=== PATIENT | male | born 1935 | race Caucasian/White ===

== ENCOUNTER 2018-08-05 19:30 | Inpatient (IN) ==
[2018-08-05 20:35] LABS: URINE SOURCE CATH
[2018-08-05 20:37] LABS: BASO# 0.02 X1000 (0.0-0.2); BASO% 0.2 % (0.0-0.8); EOS# 0.13 X1000 (0.0-0.7); EOS% 1.1 % (0.0-10.0); HEMATOCRIT 33.4 % (42.0-52.0); HEMOGLOBIN 10.7 g/dL (14.0-18.0); IMM GRAN# 0.03 X1000 (0.0-0.04); IMM GRAN% 0.2 % (0.0-0.5); LYMPH# 1.64 X1000 (1.2-3.4); LYMPH% 13.5 % (20.5-51.1); MCH 30.1 PG (27-31); MCV 94.1 FL (81-99); MONO# 0.75 X1000 (0.11-0.59); MONO% 6.2 % (1.7-9.3); MPV 9.6 FL (7.4-10.4); NEUT# 9.58 X1000 (1.4-6.5); NEUT% 78.8 % (42.2-75.2); PLT 398 X1000 (130-400); RBC 3.55 XMIL (4.7-6.1); RDW 12.9 % (11.5-14.5); WBC 12.15 X1000 (4.8-10.8)
[2018-08-05 20:38] LABS: BILIRUBIN URINE NEGATIVE (NEGATIVE); BLOOD URINE SMALL (NEGATIVE); COLOR YELLOW; GLUCOSE URINE NEGATIVE (NEGATIVE); KETONE URINE NEGATIVE (NEGATIVE); LEUKOCYTES URINE NEGATIVE (NEGATIVE); NITRITE URINE NEGATIVE (NEGATIVE); PH URINE 6.5; PROTEIN URINE NEGATIVE (NEGATIVE); SP GRAVITY URINE 1.012; TURBIDITY URINE CLEAR (CLEAR); UROBILINOGEN URINE NORMAL (NORMAL)
[2018-08-05 20:39] LABS: UR EPITHELIAL CELLS <10 /HPF (<10); URINE BACTERIA NEGATIVE /HPF; URINE WBC <10 /HPF (<10)
[2018-08-05 20:50] LABS: AGAP 9; ALBUMIN 3.3 g/dL (3.5-5.0); ALKALINE PHOSPHATASE 93 U/L (32-122); AMYLASE 61 U/L (20-200); BUN 16 mg/dL (8-22); CALCIUM 10.4 mg/dL (8.8-10.2); CHLORIDE 104 mmol/L (98-107); COSMO 281; CREATININE 1.1 mg/dL (0.7-1.2); ESTIMATED GFR > 60; GLUCOSE 114 mg/dL (70-104); GOT 15 U/L (10-34); GPT 12 U/L (10-44); LIPASE 30 U/L (13-60); POTASSIUM 4.6 mmol/L (3.5-5.1); SODIUM 140 mmol/L (136-145); TCO2 27 mmol/L (25-35); TOTAL BILIRUBIN 0.26 mg/dL (0.20-1.00); TOTAL PROTEIN 6.6 g/dL (6.3-8.3)
--- NOTE | 2018-08-05 21:52 | Diag Imaging Result Doc PS360 ---
EXAM: CT ABDOMEN/PELVIS W/O CONTRAST 08/05/2018 HISTORY: abd pain TECHNIQUE: This exam was performed using automated exposure control, adjustment of mA or kV according to patient size, and/or use of iterative reconstruction technique. COMMENT: The current examination is compared with the previous study of 11/05/2016. There are some fibrotic changes present in the lung bases which have not apparently changed since the previous study. There is extensive colonic diverticulosis. There is no evidence of cholelithiasis. There are numerous granulomata in the spleen. There is hyperdense material within the renal collecting systems bilaterally. No contrast was given by history. Some of this may be due to stones. There is no evidence of hydronephrosis. There is a large cyst in the lower pole of the right kidney measuring 4.7 cm in diameter. There is some fat stranding around the duodenum. There were previously multiple diverticula in the second and third portions of the duodenum. There is no evidence of free air. There is some apparent mucosal thickening in the second portion of the duodenum. There is no evidence of diverticulitis or free fluid. There has been previous prostatectomy. The urinary bladder is not particularly distended. There are postsurgical changes and spondylotic changes in the lumbar spine. There is a defect in the right eighth rib which may be due to previous surgery. IMPRESSION: Inflammatory changes around the second portion of the duodenum with thickening of the mucosa. The possibility of duodenal ulcer disease, duodenal diverticulitis, or even focal pancreatitis should be considered. Apparent staghorn calculi. Electronically signed by Stephane Dee 08/05/2018 9:49 PM
[2018-08-06] MEDS ORDERED: ZOFRAN IV PRN (00:03)
[2018-08-06] MEDS ORDERED: TYLENOL PO PRN (00:03)
[2018-08-06] MEDS: PROTONIX IV SCH ×2 (01:31→13:27)
[2018-08-06] MEDS: NS 1,000 ML IV SCH ×2 (01:31→10:36)
[2018-08-06] MEDS: ZOSYN 3.375 GM in NS 50 ML IV SCH ×4 (01:31→18:54)
[2018-08-06] MEDS: MORPHINE IV PRN ×2 (04:03→12:05)
[2018-08-06 06:48] LABS: BASO# 0.03 X1000 (0.0-0.2); BASO% 0.3 % (0.0-0.8); EOS# 0.18 X1000 (0.0-0.7); EOS% 1.8 % (0.0-10.0); HEMATOCRIT 32.6 % (42.0-52.0); HEMOGLOBIN 10.4 g/dL (14.0-18.0); IMM GRAN# 0.02 X1000 (0.0-0.04); IMM GRAN% 0.2 % (0.0-0.5); LYMPH# 2.21 X1000 (1.2-3.4); LYMPH% 22.1 % (20.5-51.1); MCH 30.2 PG (27-31); MCHC 31.9 g/dL (33-37); MCV 94.8 FL (81-99); MONO# 0.81 X1000 (0.11-0.59); MONO% 8.1 % (1.7-9.3); MPV 9.7 FL (7.4-10.4); NEUT# 6.76 X1000 (1.4-6.5); NEUT% 67.5 % (42.2-75.2); PLT 361 X1000 (130-400); RBC 3.44 XMIL (4.7-6.1); RDW 13.1 % (11.5-14.5); WBC 10.01 X1000 (4.8-10.8)
[2018-08-06 07:22] LABS: AGAP 10; BUN 14 mg/dL (8-22); CALCIUM 9.6 mg/dL (8.8-10.2); CHLORIDE 104 mmol/L (98-107); COSMO 276; CREATININE 1.1 mg/dL (0.7-1.2); ESTIMATED GFR > 60; GLUCOSE 94 mg/dL (70-104); POTASSIUM 4.3 mmol/L (3.5-5.1); SODIUM 138 mmol/L (136-145); TCO2 24 mmol/L (25-35)
--- NOTE | 2018-08-06 08:40 | HISTORY AND PHYSICAL ---
PRIMARY CARE PHYSICIAN: Dr. Judi Valentine CHIEF COMPLAINT: Right upper quadrant pain. HISTORY OF PRESENT ILLNESS: Mr. Becerril is an 83-year-old male who presented to the ER approximately 1930 on 08/05/2018. The patient was brought in by ambulance, and initially the call went out as chest pain, though it does appear, upon further evaluation in the ER, that the patient, when asked to point to his pain, was pointing to his right upper quadrant and epigastric area. He denied any upper chest pain. Though they did perform an EKG in the ER which showed a normal sinus rhythm at a rate of 90 with a QTC of 398. There does not appear to be any acute ST change noted. The patient's daughter who was at bedside states that the patient does have problems with constipation where he will have to take a laxative, and then unfortunately the laxative will have a few episodes of diarrhea. She says this is a common ongoing thing, though she did report that the patient had some constipation and had taken a laxative recently. The patient denies any nausea or vomiting. The patient and his daughter deny him having any known hematochezia or melena. He denies any dysuria or urinary frequency. He denies any pain, numbness, tingling or swelling in extremities. He also denies any headache or dizziness. He denies any known fever, body aches or chills. The patient does have a history of dementia. He is alert and oriented to person and place, though not time. He was able to recognize his daughter at bedside and was able to tell me her middle name. His 2 daughters do help care for him and his . Unfortunately his is in poor health as well, and they require 24-hour care. They do have sitters during the day, and his third daughter does stay with both of them at night. Though at this time, the patient does appear to be at his baseline according to the daughter. He did appear to be in good spirits and was joking with me during my examination. Due to the patient's report of right upper quadrant pain as well as he did have some leukocytosis with a white blood cell count of 12,150, they performed a CT of the abdomen and pelvis without contrast which did show inflammatory changes around the second portion of the duodenum with thickening of the mucosa. The possibility of duodenal ulcer disease, duodenal diverticulitis or even focal pancreatitis should be considered. There was also apparent staghorn calculi noted. The patient was admitted in 04/2016 and was diagnosed with a GI bleed. 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 On his colonoscopy performed during this admission, it was noted to have diverticulosis and a diverticular bleed. Though at this time, the patient does not report any hematemesis, hematochezia or melena. His hemoglobin and hematocrit are slightly low, though both appear stable at this time. The patient will be placed inpatient for admission. REVIEW OF SYSTEMS: A 14-point review of systems was conducted with the patient. All were negative except for pertinent positives mentioned in the above HPI. PAST MEDICAL HISTORY: 1. History of colitis, history of diverticulosis with a diverticular bleed. 2. Alzheimer's dementia. 3. Hypertension. 4. Hyperlipidemia. 5. GERD. 6. History of prostate cancer, status post prostatectomy. PAST SURGICAL HISTORY: 1. 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 2. Prostatectomy. SOCIAL HISTORY: The patient is , though he and his both do require 24-hour care. They do have sitters that stay when them during the day, and his other daughter stays with them during the night. He does live here in [place]. There is no known history of tobacco, alcohol or illicit drug use. FAMILY HISTORY: Notable for his mother having a known history of being obese, and his father was an alcoholic. ALLERGIES: The patient has allergy to Macrodantin and Maxaquin. HOME MEDICATIONS: 1. Amlodipine 5 mg p.o. nightly at bedtime. 2. Aspirin 81 mg p.o. daily. 3. Celexa 20 mg p.o. nightly at bedtime. 4. Cranberry fruit extract 250 mg p.o. daily. 5. Anton 7.5 one p.o. p.r.n. as directed for pain. 6. Multigen Plus caplet 1 p.o. daily. 7. Namzaric 14/10 mg capsule 1 p.o. nightly at bedtime. 8. Multivitamin with minerals tablet 1 p.o. daily. 9. Pravastatin 30 mg p.o. nightly at bedtime. DIAGNOSTIC DATA: White blood cell count is 12,150, hemoglobin 10.7, hematocrit 33.4, platelet count 398. Sodium 140, potassium 4.6, chloride 104, serum bicarb is 27, BUN is 16, creatinine 1.1 with GFR greater than 60, glucose 114, calcium 10.4. Liver function tests within normal limits. Troponin is less than 0.01. Amylase 61, lipase 30, plasma lactate is 1.2. Urinalysis was obtained via catheter and was positive for small amount of blood, though was negative for protein, glucose, ketones, nitrites, leukocytes or white blood cells. EKG showed normal sinus rhythm at a rate of 90 with a QTC of 398. CT of abdomen and pelvis did show inflammatory changes around the second portion of the duodenum with thickening of the mucosa. The possibility of duodenal ulcer disease, duodenal diverticulitis or even focal pancreatitis should be considered. There was an apparent staghorn calculi noted as well. PHYSICAL EXAMINATION: VITAL SIGNS: Temperature 98, heart rate 71, respirations 17, blood pressure is 122/76, oxygen saturation is 94% on room air. GENERAL: Mr. Becerril is a very pleasant elderly male. He was resting on the ER stretcher. He was in no acute distress, though he does have a history of dementia. He is alert and oriented to person and place, though not time. He was able to answer questions appropriately and follow commands. The patient did seem to be in good spirits and was joking with me during my examination. HEENT: Head is atraumatic and normocephalic. Pupils are equal, round and reactive to light, were 3 mm bilaterally and brisk. Oral mucosa is slightly dry. Oropharynx was clear. NECK: Supple. Trachea midline. CARDIOVASCULAR: The patient has S1 and S2. No murmurs, gallops or rubs appreciated, with a regular rate and rhythm. PULMONARY: The patient has symmetrical chest expansion bilaterally. Lung sounds are clear to auscultation in bilateral full herrera. ABDOMEN: Soft. It does not appear to be distended, though the patient did report some tenderness upon palpation in the right upper quadrant area. Bowel sounds were present in all 4 quadrants and were normoactive. EXTREMITIES: No cyanosis, clubbing or edema noted. Pulse, motor and sensory were intact in all extremities. Radial pulses and pedal pulses were 2+ bilaterally. INTEGUMENTARY: The patient's skin was pink, warm and dry. NEUROLOGICAL: The patient is alert and oriented to person and place, though not time. Though he was able to follow commands. He was able to move all extremities. Other than this, he did not appear to have any focal neurological deficits noted. ASSESSMENT AND PLAN: 1. Possible duodenal diverticulitis and duodenal ulcer disease. The patient is complaining of some right upper quadrant pain and did have some mild leukocytosis noted, though he is not known to be febrile. Though given these findings, we have place the patient with antibiotic coverage of Zosyn. We will place him on a clear liquid diet and provide some IV fluid hydration. We will continue to follow. 2. History of dementia. The patient does appear to be at his baseline. We will continue his Namenda and Aricept. 3. History of hypertension. The patient's daughter reports that for the last couple of weeks, they have been holding his amlodipine due to he was having some problems with weakness and hypotension, and they attributed this likely to be secondary to his blood pressure medicine. Given this, we will hold this as well. His blood pressures have been within normal limits. We will continue to monitor and implement antihypertensives only if necessary. 4. Hyperlipidemia. We will continue his pravastatin. 5. Gastroesophageal reflux disease. We will treat him with Protonix 40 mg IV q.12 hours as well as GI prophylaxis. 6. DVT prophylaxis will be provided with SCDs. The patient has been placed on medical floor with telemetry. He will have vital signs q.6 hours. We will do strict intake and output. We will repeat a CBC and BMP in the morning. Further orders and recommendations pending hospital course, diagnostic studies and physician evaluation. Dictated by JENNIFER Fairbanks for Otf Wang MD cc: Otf Wang MD
[2018-08-06] MEDS ORDERED: PATIENT'S OWN MED PO SCH (09:00)
[2018-08-06] MEDS ORDERED: LR 1,000 ML IV SCH (12:45)
--- NOTE | 2018-08-06 13:27 | PROGRESS NOTE ---
DATE: 08/06/2018 INTERVAL HISTORY: Mr. Becerril was admitted for small intestinal diverticula, diverticulitis, suspected ulcer. He was started on intravenous fluid resuscitation, intravenous antibiotics. No other acute overnight events. SUBJECTIVE: Patient is awake, alert, denying any complaints. He states he still has some discomfort in his chest. However, he points to his abdomen, which is better than it was yesterday. He denies any nausea, vomiting, or diarrhea currently. VITAL SIGNS: Suggestive of temperature 97.9 degrees, pulse 61, respiratory rate 18, blood pressure 115/65, saturating 98% on room air. PHYSICAL EXAMINATION: General: Does not appear in any acute distress. Oral cavity is moist. Lungs: Air entry bilaterally equal. He had mild inspiratory crackles at bilateral bases. Cardiovascular: S1, S2 normal. No murmur, rub, or gallop. Abdomen: Soft. No tenderness. No hepatosplenomegaly or rebound or rigidity. Active bowel sounds. Extremities: No lower extremity edema. LABS: Suggestive of resolution of leukocytosis, normocytic anemia, normal platelet count, normal electrolytes. MICROBIOLOGY: Blood culture, no growth to date. IMAGING: Abdomen and pelvis CT had suggested thickening around duodenum, with suspected diverticulitis. ASSESSMENT AND PLAN: 1. Duodenal diverticulitis versus small intestinal bacterial overgrowth on duodenal diverticula. Continue intravenous fluids and intravenous Zosyn. I will consult gastroenterology tomorrow to see if inpatient intervention in terms of endoscopy would be needed. However, the likelihood of this is less. 2. History of dementia. Currently appears to be at baseline where he is alert. He is oriented to himself and his family members, not with the situation or the time. Continue his home medications of memantine and donepezil, and also continue his home citalopram. 3. Continue intravenous Protonix for suspected duodenitis. 4. History of essential hypertension. Currently, his vitals are in acceptable range. I will hold his antihypertensive medications for now. 5. Hyperlipidemia. Continue his home pravastatin. 6. Deep venous thrombosis prophylaxis. Sequential compression devices. 7. Disposition. Patient remains inside the hospital as we await final blood culture results. Plan of care has been discussed with the patient and both the daughters on the phone. All of their questions have been answered. I will have physical therapy evaluation tomorrow. I expect the patient to be discharged in the next 24 to 48 hours. At that point, I will consider home with home physical therapy. cc: Leandro Cabrera MD
[2018-08-06] MEDS: SODIUM CHLORIDE 0.9% INJ SCH (13:28)
[2018-08-06] MEDS ORDERED: PRAVACHOL PO SCH (21:00)
[2018-08-06] MEDS ORDERED: NORVASC PO SCH (21:00)
[2018-08-06] MEDS ORDERED: CELEXA PO SCH (21:00)
[2018-08-07] MEDS: SODIUM CHLORIDE 0.9% INJ SCH ×2 (01:17→13:05)
[2018-08-07] MEDS: PROTONIX IV SCH ×2 (01:17→13:05)
[2018-08-07] MEDS: ZOSYN 3.375 GM in NS 50 ML IV SCH ×3 (01:17→13:05)
[2018-08-07 07:24] LABS: BASO# 0.03 X1000 (0.0-0.2); BASO% 0.4 % (0.0-0.8); EOS# 0.21 X1000 (0.0-0.7); HEMATOCRIT 32.3 % (42.0-52.0); HEMOGLOBIN 10.1 g/dL (14.0-18.0); LYMPH# 1.78 X1000 (1.2-3.4); LYMPH% 25.1 % (20.5-51.1); MCH 29.9 PG (27-31); MCHC 31.3 g/dL (33-37); MCV 95.6 FL (81-99); MONO# 0.59 X1000 (0.11-0.59); MONO% 8.3 % (1.7-9.3); MPV 9.7 FL (7.4-10.4); NEUT# 4.49 X1000 (1.4-6.5); NEUT% 63.2 % (42.2-75.2); PLT 352 X1000 (130-400); RBC 3.38 XMIL (4.7-6.1); RDW 13.1 % (11.5-14.5)
--- NOTE | 2018-08-07 07:34 | EKG Report ---
Test Performed on : 08/05/2018 7:56:17 PM Test Reason : cp Blood Pressure : / mmHG Vent. Rate : 090 BPM Atrial Rate : 090 BPM P-R Int : 174 ms QRS Dur : 068 ms QT Int : 326 ms P-R-T Axes : 035 -16 -12 degrees QTc Int : 398 ms Poor data quality, interpretation may be adversely affected Normal sinus rhythm. Normal ECG When compared with ECG of 21-JUL-2018 11:31, (Unconfirmed) No significant change was found Unconfirmed Result
[2018-08-07 07:44] LABS: CALCIUM 10.1 mg/dL (8.8-10.2); CREATININE 1.2 mg/dL (0.7-1.2)
[2018-08-07 15:49] VITALS: BP 141/79
--- NOTE | 2018-08-07 18:05 | PROVIDER DOCUMENTATION ---
This chart was entered by Macy Rahman Scribe, acting as scribe for Garth Chilel MD. HPI-Abdominal Pain/GI Problem - General Chief Complaint: Abdominal Pain Stated Complaint: cp Time Seen by Provider: 08/05/18 19:49 Source: family, EMS Allergies/Adverse Reactions: Patient Allergies Allergy/AdvReac Type Severity Reaction Status Date / Time lomefloxacin HCl * Allergy Intermediate skin peel Verified 04/29/16 11:54 [From Maxaquin] nitrofurantoin Allergy RASH Verified 04/29/16 11:54 macrocrystalline * [From Macrodantin] Home Medications: Home Medication List Medication Instructions Recorded Confirmed Last Taken Type Amlodipine Besylate 5 mg PO QHS 04/29/16 08/05/18 04/28/16 History Aspirin 81 mg PO DAILY 04/29/16 08/05/18 04/29/16 History Citalopram [Celexa] 20 mg PO QHS 04/29/16 08/05/18 04/28/16 History Memantine HCl/Donepezil HCl 1 cap PO QHS 04/29/16 08/05/18 04/29/16 History [Namzaric 14 mg-10 mg Capsule] PRAVAstatin [Pravachol] 40 mg PO QHS 04/29/16 08/05/18 04/28/16 History Acetaminophen [Tylenol 8 Hour] 650 mg PO PRN PRN 08/05/18 08/05/18 Unknown History Cranberry Fruit Extract [Cranberry] 250 mg PO DAILY 08/05/18 08/05/18 Unknown History Hydrocodone/Acetaminophen 1 ea PO PRN PRN 08/05/18 08/05/18 Unknown History [Hydrocodone-Acetamin 7.5-325] Iron Fum & Ag/C/B12/FA/Ca/Succ 1 ea PO DAILY 08/05/18 08/05/18 Unknown History [Multigen Plus Caplet] Multivit-Min/Iron Fum/Folic AC 1 ea PO DAILY 08/05/18 08/05/18 Unknown History [Ecira-Hygqqjv-Oebuovhz Tablet] - History of Present Illness-ABD Nature of Presenting Problems: Pt is 83/m presenting to the ED via EMS, pt has dementia. Pt c/o RUQ and r flank pain. It is reported that he has had constipation and has been on laxative. PT appears at baseline. Abdominal Pain Onset Location: reports: RUQ, periumbilical Pain Radiation: reports: flank Quality of Pain: reports: aching Severity in ED: reports: mild Onset/Duration: reports: just prior to arrival Timing: reports: still present Activities at Onset: reports: none Exposure to sick contacts?: No Modifying Factors: improves with: nothing Associated Symptoms: reports: constipation. denies: diarrhea, fever/chills, shortness of breath, vomiting, weakness Last BM: unsure Review of Systems - Adult - REVIEW OF SYSTEMS - ADULT Constitutional: reports: no symptoms reported. denies: chills, fever Eyes: reports: no symptoms reported Ears, Nose, Mouth & Throat: reports: no symptoms reported Cardiovascular: reports: no symptoms reported. denies: chest pain Respiratory: denies: no symptoms reported Gastrointestinal: reports: abdominal pain, constipation. denies: diarrhea, nausea, vomiting Genitourinary: reports: no symptoms reported Musculoskeletal: reports: no symptoms reported Integumentary: reports: no symptoms reported Neurological: reports: no symptoms reported. denies: dizziness/vertigo Psychiatric: reports: no symptoms reported Endocrine: reports: no symptoms reported Hematologic/Lymphatic: reports: no symptoms reported Allergic/Immunologic: reports: no symptoms reported All Other Systems: Reviewed and Negative Past History - Adult - PAST MEDICAL HISTORY-ADULT Review of Records: reports: Old Records Reviewed, Nursing Assessment Review, Medications Reviewed, Social history reviewed & non-contributory. Major Childhood Illnesses: reports: denies history Cardiovascular: reports: denies history Respiratory: reports: denies history Gastrointestinal: reports: diverticulosis Genitourinary: reports: kidney stones, prostate cancer Musculoskeletal: reports: arthritis, chronic pain, other (back sx x3) Neurological: reports: dementia Psychiatric: reports: denies history Endocrine/Immune: reports: denies history Other Conditions: reports: denies history - PRIOR SURGERIES/PROCEDURES Surgical/Procedure History: reports: orthopedic (extremity), back/neck - IMMUNIZATION STATUS Childhood Immunizations: See Nurse Assessment Flu Vaccine: See Nurse Assessment - FAMILY HISTORY Family History: reviewed, not pertinent - SOCIAL HISTORY Smoking: denies, non-smoker Substance Use: none/never Alcohol Use Frequency: never Living Situation: family Physical Exam-General - PHYSICAL EXAM-ADULT Initial Vital Signs Reviewed: Yes - CONSTITUTIONAL General Appearance: appears well, alert, no apparent distress, other (pt at baseline at time of exam) - EYES Eyes: PERRL/EOMI, pink conjunctivae - HEAD, EARS, NOSE, MOUTH & THROAT HENMT: normocephalic/atraumatic, moist mucous membranes, normal ENT inspection, TMs normal, pharynx normal - NECK Neck: non-tender, full range of motion, supple, normal inspection - RESPIRATORY Respiratory: lungs clear - CARDIOVASCULAR Cardiovascular: regular rate, rhythm - GASTROINTESTINAL (ABDOMEN) Abdominal Exam: normal bowel sounds, soft, tenderness (tenderness to suprapubic area, RLQ pain) - LYMPHATIC Lymphatic: no adenopathy - MUSCULOSKELETAL Back Exam: normal inspection, no CVA tenderness, no vertebral tenderness Extremity: normal range of motion, non-tender, normal gait, normal inspection - SKIN Integumentary: normal color, warm/dry - NEUROLOGIC Neurologic: grossly normal - PSYCHIATRIC Psych/Mental Status: normal mood/affect, normal thought content, normal thought process, oriented x 3 Progress - PLAN OF CARE/RESULTS Progress/Plan/Lab Results: Vital Signs - 8 hr 08/05/18 20:00 Temperature 99.6 F Pulse Rate 89 Respiratory Rate 16 Blood Pressure 115/72 O2 Sat by Pulse Oximetry 95 Orders Category Date Time Status NPO Diet 08/06/18 00:01 Active AMYLASE [CHEM] Stat Lab 08/05/18 20:19 Received CBC WITH ELECTRONIC DIFF [HEME] Stat Lab 08/05/18 20:19 Received CMP [COMPREHENSIVE METABOLIC PANEL] [CHEM] Stat Lab 08/05/18 20:19 Received LACTATE, PLASMA [CHEM] Stat Lab 08/05/18 20:06 Uncollected LIPASE [CHEM] Stat Lab 08/05/18 20:19 Received TROPONIN T Stat Lab 08/05/18 20:07 Uncollected URINALYSIS W/POSS RFLX CULT [URINALYSIS] Stat Lab 08/05/18 20:26 Received EKG [EKG] Stat Ther 08/05/18 19:46 Ordered Patient care, assessment and plan discussed with the attending physician Dr. Girish Dugan and he agree with the plan as documented. Result Diagrams: 08/05/18 20:19 08/05/18 20:19 - CT/MRI 1 CT Study: Abdomen (EXAM: CT ABDOMEN/PELVIS W/O CONTRAST 08/05/2018 HISTORY: abd pain TECHNIQUE: This exam was performed using automated exposure control, adjustment of mA or kV according to patient size, and/or use of iterative reconstruction technique. COMMENT: The current examination is compared with the previous study of 11/05/2016. There are some fibrotic changes present in the lung bases which have not apparently changed since the previous study. There is extensive colonic diverticulosis. There is no evidence of cholelithiasis. There are numerous granulomata in the spleen. There is hyperdense material within the renal collecting systems bilaterally. No contrast was given by history. Some of this may be due to stones. There is no evidence of hydronephrosis. There is a large cyst in the lower pole of the right kidney measuring 4.7 cm in diameter. There is some fat stranding around the duodenum. There were previously multiple diverticula in the second and third portions of the duodenum. There is no evidence of free air. There is some apparent mucosal thickening in the second portion of the duodenum. There is no evidence of diverticulitis or free fluid. There has been previous prostatectomy. The urinary bladder is not particularly distended. There are postsurgical changes and spondylotic changes in the lumbar spine. There is a defect in the right eighth rib which may be due to previous surgery. IMPRESSION: Inflammatory changes around the second portion of the duodenum with thickening of the mucosa. The possibility of duodenal ulcer disease, duodenal diverticulitis, or even focal pancreatitis should be considered. Apparent staghorn calculi. Electronically signed by Stephane Dee 08/05/2018 9:49 PM) - CONSULTS/PCP/HOSPITALIST Notification #1 *Consult/PCP/Hospitalist*: Dr. Retana Time Discussed: 22:21 Consult Disposition: Admit (Accepted. Hx. PE and patient condition disucssed with Dr. Retana.) Departure - Departure Date of Disposition Decision: 08/05/18 Time of Disposition Decision: 22:21 DIAGNOSIS: Duodenitis Disposition: ADMITTED INPATIENT 09 Certified Medical Emergency: Emergent Condition: Stable Referrals and Follow-Ups: Judi Valentine MD [Primary Care Provider] - - Critical Care Note This patient required my direct & personal management of CC.: No Attestation - Physician/ MARY Attestation Patient care was provided by Advanced Practice Provider:: No The physician spent face to face time with patient:: Yes Advanced Practice Provider documentation review:: Supervising physician onsite and consulted in the evaluation and care of this patient. The physician did have a face to face encounter with the patient. This chart was documented by the indicated scribe, (Macy Rahman, Hayder) and accurately reflects the services I performed and decisions made by me, Mariaa fobres,Garth Ledesma MD, as attested by the provider's signature.
--- NOTE | 2018-08-07 19:22 | DISCHARGE SUMMARY ---
ADMISSION DATE: 08/05/2018 DISCHARGE DATE: 08/07/2018 INTERVAL HISTORY: No acute overnight events. The patient had a bowel movement yesterday, today morning. The patient denies any nausea, vomiting, or abdominal pain. He has been eating okay. OBJECTIVE: Vital signs: Temperature 98, pulse 67, respiratory rate 18, blood pressure 127/77, he is saturating 96% on room air. General: Does not appear in any acute distress. ENT: Oral cavity is moist. Lungs: Air entry bilaterally equal. No wheeze, rhonchi, crackles. Heart: S1, S2 normal. No murmur, rub, or gallop. Abdomen: Soft, nontender. Active bowel sounds. Extremities: No lower extremity edema. Neurologic: He is alert. He is oriented to place and his name and he tells me that I am his doctor. DISCHARGE DIAGNOSES: 1. Acute small intestinal or duodenal diverticulitis. 2. Suspected duodenal ulcer or duodenitis. 3. Leukocytosis because of duodenal diverticulitis. 4. Dementia without behavioral disturbance. Patient is normally awake, alert. Oriented x2 and able to walk and feed himself. OTHER DIAGNOSES: 1. History of dementia. 2. History of diverticulosis with diverticular bleed. 3. Alzheimer's dementia. 4. History of essential hypertension. 5. Hyperlipidemia. 6. Gastroesophageal reflux disease. 7. History of prostate cancer status post prostatectomy. CONSULTATION: During hospitalization: Gastroenterology, Dr. Wheeler. However, the patient was discharged before Gastroenterology could see the patient. He was advised to follow up with Dr. Wheeler as an outpatient. DISCHARGE MEDICATIONS: Amlodipine 5 mg at nighttime. Citalopram 20 mg at nighttime. Memantine and donepezil 1 capsule p.o. at bedtime, pravastatin 40 mg at nighttime, aspirin 81 mg daily, cranberry fruit extract 250 mg daily, hydrocodone acetaminophen 7.5/325 mg 1 tablet p.o. q.6 hours p.r.n., multivitamin with minerals, iron fumarate, folic acid 1 tablet p.o. daily. Acetaminophen 650 mg p.o. p.r.n., levofloxacin 500 mg daily 7 tablets have been prescribed. Metronidazole 500 mg b.i.d. 14 tablets have been prescribed. Omeprazole 40 mg daily, 15 tablets have been prescribed. SIGNIFICANT LABS: During hospital admission, he had leukocytosis on admission with WBC count of 12.15, which was resolved to 7.10 at the time of discharge. His hemoglobin was stable and was 10.1 at the time of discharge. He had normal platelet count. Normal electrolytes. Kidney function showing creatinine of 1.2. Microbiology during examination, blood culture did not show any growth. IMAGING: During admission, abdominal/pelvic CT had inflammatory changes around the second portion of the duodenum with thickening of the mucosa and with possibility of a duodenal ulcer disease, duodenal diverticulitis or even focal pancreatitis. However, patient had significantly improved after intravenous fluids and antibiotics and was pain free. It was thought to be secondary to diverticulitis. He was advised to follow up outpatient provider for EGD. HOSPITAL COURSE SUMMARY: Mr. Becerril is an 83-year-old, man, who presented with chief complaint of small right upper quadrant pain on arrival, though he was complaining of chest pain. On further history, he was pointing towards right upper quadrant. In any case, his EKG in the emergency room had normal sinus rhythm with rate of [address]-segment changes. He did not have any nausea, vomiting, or known hematochezia or melena. CT scan of the abdomen and pelvis had detected diverticulitis around duodenum with thickening suggestive of diverticulitis, ulcer disease. He was started on pantoprazole, intravenous antibiotics, intravenous fluids following which he had started improving. His leukocytosis had improved. He was able to tolerate soft diet without any trouble and it was deemed appropriate for him to be discharged on p.o. antibiotics. Gastroenterology was consulted. The patient wanted to go home and considering his clinical status has improved on antibiotics, it was thought it was appropriate for him to go home and follow up with gastroenterology, Dr. Wheeler as an outpatient. I had called the patient's daughter on the phone and had informed them about the patient's course and plan with antibiotics and had answered all of their questions. They were in agreement. TIME SPENT: Less than 30 minutes were spent in discharging this patient. All of daughter's questions have been answered satisfactorily. cc: MD CALEB Luna
[2018-08-07] MEDS ORDERED: NAMENDA XR PO SCH (21:00)
[2018-08-07] MEDS ORDERED: ARICEPT PO SCH (21:00)
== END 2018-08-07 19:01 | disposition home health service (06) | DRG 392 ==
LOC: SUPCPDRO → ED 19:30 → SUATTDRO 23:40 → 4N 23:40
PROVIDERS: ATTEND Internal Medicine
CPT/HCPCS: 74176; 80048; 80053; 81001; 82150; 83605; 83690; 84484; 85025; 87040; 93005; 97163; 99285; A9270; C9113; J2270; J2405; J2543; J7030; J7120; S0164